=== PATIENT | male | born 1985 | race Caucasian/White ===

== ENCOUNTER 2016-11-08 01:05 | Emergency (ER) | payer OTHER ==
[2016-11-08 02:07] LABS: BASOPHIL 0.2 % (0-2); EOSINOPHIL 0.5 % (0-5); HCT 40.9 % (42.0-52.0); HGB 13.8 g/dl (13.2-18.0); LYMPHOCYTE 20.9 % (15-48); MCHC 33.7 g/dL (32.0-36.0); MCV 85.9 fL (78.0-100.0); MONOCYTE 9.9 % (0-12); MPV 9.3 fL (6.0-9.5); NEUTROPHIL 68.5 % (41-80); PLT 298 K/uL (150-400); RBC 4.76 M/uL (4.70-6.00); RDW 13.8 % (11.5-14.0); WBC 10.1 K/uL (4.0-10.5)
[2016-11-08 02:22] LABS: ALBUMIN 4.4 g/dL (3.5-5.0); ALCOHOL (ETOH) MEDICAL NONE DETECTED; BILIRUBIN - TOTAL 0.3 mg/dL (0.1-1.0); CREATININE 1.1 mg/dL (0.7-1.2); GLOBULIN (CALCULATION) 2.8 g/dL (2.2-4.2); POTASSIUM 4.8 mmol/L (3.5-5.1); SALICYLATE < 6 ug/mL (0-300); TOTAL PROTEIN 7.2 g/dL (6.4-8.3)
[2016-11-08 02:23] LABS: ACETAMINOPHEN (TYLENOL) < 5.0 ug/mL (10.0-30.0)
[2016-11-08 04:04] LABS: BENZODIAZEPINES POSITIVE (NEGATIVE)
[2016-11-08 04:05] LABS: AMPHETAMINES POSITIVE (NEGATIVE); BARBITURATES NEGATIVE (NEGATIVE); COCAINE POSITIVE (NEGATIVE); MARIJUANA (THC) POSITIVE (NEGATIVE); METHADONE NEGATIVE (NEGATIVE); TRICYCLIC ANTIDEPRESSANT NEGATIVE (NEGATIVE)
== END 2016-11-08 05:25 | disposition home or self-care (01) ==
LOC: FER 01:05
PROVIDERS: Emergency Medicine Emergency Medical Services
DX: T43.621A Poisoning by amphetamines, accidental (unintentional), initial encounter (principal); T40.2X1A Poisoning by other opioids, accidental (unintentional), initial encounter; T40.7X1A Poisoning by cannabis (derivatives), accidental (unintentional), initial encounter; T40.5X1A Poisoning by cocaine, accidental (unintentional), initial encounter; T42.4X1A Poisoning by benzodiazepines, accidental (unintentional), initial encounter; R41.82 Altered mental status, unspecified; F15.10 Other stimulant abuse, uncomplicated
CPT/HCPCS: 36415; 80053; 80305; 85025; G0480